=== PATIENT | male | born 1945 | race Caucasian/White ===

== ENCOUNTER 2017-05-16 12:05 | Emergency (ER) | payer MEDICARE, OTHER ==
[~2017-05-16] VITALS: Ht 188 cm; Wt 104.0 kg
[~2017-05-16 12:05] MED LIST: ACET-2119 PO; CARCD120C PO; CHOL2000 PO; CYCL5TAB PO; HYDR12.55 PO; POTA10TA36 PO
[2017-05-16] MEDS ORDERED: ketorolac trometh inj. 60 MG/2 ML VIAL IM ONE (13:30)
[2017-05-16] MEDS ORDERED: orphenadrine citrate 60mg/2ml inj. IM ONE (13:30)
[2017-05-16] MEDS ORDERED: CYCL-1 PO (13:56)
[2017-05-16] MEDS ORDERED: HYDR-569 PO (13:56)
[2017-05-16 14:28] VITALS: BP 154/99
== END 2017-05-16 14:29 | disposition home or self-care (01) ==
LOC: ER 12:05
DX: S16.1XXA Strain of muscle, fascia and tendon at neck level, initial encounter (principal); S39.012A Strain of muscle, fascia and tendon of lower back, initial encounter; M25.511 Pain in right shoulder; G89.29 Other chronic pain; I10 Essential (primary) hypertension; Z88.2 Allergy status to sulfonamides; Z88.1 Allergy status to other antibiotic agents; Z88.0 Allergy status to penicillin; W11.XXXA Fall on and from ladder, initial encounter; Y93.89 Activity, other specified; Y92.89 Other specified places as the place of occurrence of the external cause; Y99.8 Other external cause status
CPT/HCPCS: 70450; 72125; 72131; 73030; 73200; 96372; 99284; J1885; J2360; L0172

== ENCOUNTER 2017-12-10 13:14 | Emergency (ER) | payer MEDICARE, OTHER ==
[~2017-12-10] VITALS: Ht 190.5 cm; Wt 101.4 kg
[~2017-12-10 13:14] MED LIST changes: +CYCL-1 PO; +HYDR-4383 PO
[2017-12-10 13:58] LABS: BASOPHILS % (AUTO) 0.4 % (0-1); EOSINOPHILS # (AUTO) 0.1 X10'3 (0-0.9); EOSINOPHILS % (AUTO) 1.7 % (0-6); HEMATOCRIT 46.7 % (42.0-52.0); HEMOGLOBIN 15.7 g/dl (14.0-17.9); LYMPHOCYTES # (AUTO) 1.6 X10'3 (1.1-4.8); LYMPHOCYTES % (AUTO) 24.8 % (21-51); MEAN CORPUSCULAR HGB CONC 33.5 % (33.0-36.5); MEAN CORPUSCULAR VOLUME 86.4 FL (78-98); MONOCYTES # (AUTO) 0.6 X10'3 (0-0.9); MONOCYTES % (AUTO) 8.6 % (2-12); NEUTROPHILS # (AUTO) 4.2 X10'3 (1.8-7.7); NEUTROPHILS % (AUTO) 64.5 % (42-75); PLATELET COUNT 175 X10'3 (140-440); RED BLOOD COUNT 5.41 X10'6 (4.70-6.10); RED CELL DISTRIBUTION WIDTH 17.3 % (11.5-14.5); WHITE BLOOD COUNT 6.5 X10'3 (4.5-11.0)
[2017-12-10] MEDS ORDERED: ondansetron 4mg rapidly disintigrating tab PO ONE (14:05)
[2017-12-10 14:08] LABS: INR 1.1 INR; PARTIAL THROMBOPLASTIN TIME 26 SECONDS (22-32); PROTHROMBIN TIME 11.4 SECONDS (9.0-12.0)
[2017-12-10 14:11] LABS: ALANINE AMINOTRANSFERASE 58 U/L (12-78); ALBUMIN 3.9 G/DL (3.4-5.0); ALBUMIN/GLOBULIN RATIO 1.1 (1.1-1.5); ALKALINE PHOSPHATASE 102 IU/L (46-116); ANION GAP 13 (8-16); ASPARTATE AMINO TRANSFERASE 44 U/L (10-37); BILIRUBIN,TOTAL 0.9 MG/DL (0.1-1.0); BLOOD UREA NITROGEN 13 MG/DL (7-18); CALCIUM 8.5 MG/DL (8.5-10.1); CHLORIDE 102 MMOL/L (99-107); CREATININE 1.18 MG/DL (0.60-1.10); GLUCOSE 105 MG/DL (70-104); POTASSIUM 3.9 MMOL/L (3.5-5.1); SODIUM 138 MMOL/L (135-145); TOTAL CARBON DIOXIDE 23.3 MMOL/L (24-32); TOTAL PROTEIN 7.6 G/DL (6.4-8.2); eGFR 61 ML/MIN
[2017-12-10 14:31] LABS: CLARITY,URINE CLEAR (Clear); COLOR,URINE YELLOW (Yellow); GLUCOSE, URINE NEGATIVE (Neg); KETONES,URINE NEGATIVE (Neg); LEUKOCYTE ESTERASE ,URINE NEGATIVE (Neg); NITRITES, URINE NEGATIVE (Neg); OCCULT BLOOD,URINE NEGATIVE (Neg); PROTEIN,URINE NEGATIVE (Neg); UROBILINOGEN,URINE 0.2 E.U/dL (0.2-1.0)
[2017-12-10 14:34] LABS: UA COLLECTION TYPE URINAL
[2017-12-10 15:13] VITALS: BP 159/88
== END 2017-12-10 15:16 | disposition home or self-care (01) ==
LOC: ER 13:15
DX: R61 Generalized hyperhidrosis (principal); I10 Essential (primary) hypertension; M19.90 Unspecified osteoarthritis, unspecified site; G89.29 Other chronic pain; Z98.890 Other specified postprocedural states; Z88.0 Allergy status to penicillin; Z88.2 Allergy status to sulfonamides; Z88.1 Allergy status to other antibiotic agents; Z88.5 Allergy status to narcotic agent; Z88.8 Allergy status to other drugs, medicaments and biological substances
CPT/HCPCS: 36415; 71045; 80053; 81003; 83605; 84443; 84484; 85025; 85610; 85730; 93005; 99285

== ENCOUNTER 2020-04-30 23:22 | Emergency (ER) | payer MEDICARE, OTHER ==
[~2020-04-30] VITALS: Ht 188 cm; Wt 95.9 kg
[~2020-04-30 23:22] MED LIST changes: -CARCD120C PO; +CARV6.253 PO; -CHOL2000 PO; +CLON-473 PO; -CYCL-1 PO; -CYCL5TAB PO; -HYDR-4383 PO; -HYDR12.55 PO; +PANT40SU2 PO; -POTA10TA36 PO
[2020-04-30 23:26] VITALS: BP 151/88
[2020-05-01] MEDS ORDERED: ciprofloxacin 250mg tablet PO ONE (00:30)
[2020-05-01 01:01] LABS: CLARITY,URINE CLEAR (Clear); COLOR,URINE YELLOW (Yellow); GLUCOSE, URINE NEGATIVE (Neg); KETONES,URINE NEGATIVE (Neg); LEUKOCYTE ESTERASE ,URINE NEGATIVE (Neg); NITRITES, URINE NEGATIVE (Neg); OCCULT BLOOD,URINE NEGATIVE (Neg); PH,URINE 5.5 (4.8-8.0); PROTEIN,URINE NEGATIVE (Neg); UROBILINOGEN,URINE 0.2 E.U/dL (0.2-1.0)
[2020-05-01] MEDS ORDERED: CIPR-259 PO (01:17)
[2020-05-01 01:26] LABS: UA COLLECTION TYPE CLN CATCH MIDSTREAM
== END 2020-05-01 01:30 | disposition home or self-care (01) ==
LOC: ER 23:23
DX: N39.0 Urinary tract infection, site not specified (principal); I10 Essential (primary) hypertension; M19.90 Unspecified osteoarthritis, unspecified site; G89.29 Other chronic pain; Z87.442 Personal history of urinary calculi; Z98.890 Other specified postprocedural states; Z79.2 Long term (current) use of antibiotics; Z79.899 Other long term (current) drug therapy; Z88.0 Allergy status to penicillin; Z88.1 Allergy status to other antibiotic agents; Z88.2 Allergy status to sulfonamides; Z88.6 Allergy status to analgesic agent; Z88.8 Allergy status to other drugs, medicaments and biological substances
CPT/HCPCS: 81003; 99283

== ENCOUNTER 2020-05-03 21:45 | Emergency (ER) | payer MEDICARE, OTHER ==
[~2020-05-03] VITALS: Ht 188 cm; Wt 93.2 kg
[~2020-05-03 21:45] MED LIST changes: +CIPR-259 PO
[2020-05-03 22:37] VITALS: BP 124/70
[2020-05-03 23:52] LABS: BASOPHILS % (AUTO) 0 % (0-1); EOSINOPHILS # (AUTO) 0.1 X10'3 (0-0.9); EOSINOPHILS % (AUTO) 1.3 % (0-6); HEMATOCRIT 40.8 % (42.0-52.0); HEMOGLOBIN 13.4 g/dl (14.0-17.9); LYMPHOCYTES # (AUTO) 1.4 X10'3 (1.1-4.8); LYMPHOCYTES % (AUTO) 22.4 % (21-51); MEAN CORPUSCULAR HEMOGLOBIN 29.9 PG (27.0-31.0); MEAN CORPUSCULAR HGB CONC 32.8 g/dL (33.0-36.5); MEAN PLATELET VOLUME 7.6 FL (7.4-10.4); MONOCYTES # (AUTO) 0.7 X10'3 (0-0.9); MONOCYTES % (AUTO) 10.7 % (2-12); NEUTROPHILS # (AUTO) 4.1 X10'3 (1.8-7.7); NEUTROPHILS % (AUTO) 65.6 % (42-75); PLATELET COUNT 202 X10'3 (140-440); RED BLOOD COUNT 4.48 X10'6 (4.70-6.10); RED CELL DISTRIBUTION WIDTH 14.2 % (11.5-14.5); WHITE BLOOD COUNT 6.3 X10'3 (4.5-11.0)
[2020-05-04 00:02] LABS: ALANINE AMINOTRANSFERASE 30 U/L (12-78); ALBUMIN 3.4 G/DL (3.4-5.0); ALBUMIN/GLOBULIN RATIO 0.9 (1.1-1.5); ALKALINE PHOSPHATASE 141 IU/L (46-116); ANION GAP 10 (8-16); ASPARTATE AMINO TRANSFERASE 25 U/L (10-37); BILIRUBIN,TOTAL 0.4 MG/DL (0.1-1.0); BLOOD UREA NITROGEN 18 MG/DL (7-18); BUN/CREATININE RATIO 14.9 (5.4-32.0); CHLORIDE 108 MMOL/L (99-107); CREATININE 1.21 MG/DL (0.60-1.10); GLUCOSE 115 MG/DL (70-104); POTASSIUM 3.9 MMOL/L (3.5-5.1); SODIUM 141 MMOL/L (135-145); TOTAL CARBON DIOXIDE 22.7 MMOL/L (24-32); TOTAL PROTEIN 7.3 G/DL (6.4-8.2); eGFR 59 ML/MIN
[2020-05-04 00:25] LABS: CLARITY,URINE CLEAR (Clear); COLOR,URINE YELLOW (Yellow); GLUCOSE, URINE NEGATIVE (Neg); KETONES,URINE NEGATIVE (Neg); LEUKOCYTE ESTERASE ,URINE NEGATIVE (Neg); NITRITES, URINE NEGATIVE (Neg); OCCULT BLOOD,URINE NEGATIVE (Neg); PH,URINE 5.5 (4.8-8.0); PROTEIN,URINE NEGATIVE (Neg); UA COLLECTION TYPE CLN CATCH MIDSTREAM; UROBILINOGEN,URINE 0.2 E.U/dL (0.2-1.0)
[2020-05-04] MEDS ORDERED: tamsulosin 0.4mg capsule PO STA (00:39)
[2020-05-04] MEDS ORDERED: FLO0.4C PO (00:42)
== END 2020-05-04 00:56 | disposition home or self-care (01) ==
LOC: ER 21:46
DX: T83.84XA Pain due to genitourinary prosthetic devices, implants and grafts, initial encounter (principal); R30.0 Dysuria; N40.0 Benign prostatic hyperplasia without lower urinary tract symptoms; I10 Essential (primary) hypertension; M19.90 Unspecified osteoarthritis, unspecified site; G89.29 Other chronic pain; Z87.440 Personal history of urinary (tract) infections; Z87.442 Personal history of urinary calculi; Z90.49 Acquired absence of other specified parts of digestive tract; Z98.890 Other specified postprocedural states; Z88.0 Allergy status to penicillin; Z88.1 Allergy status to other antibiotic agents; Z88.2 Allergy status to sulfonamides; Z88.6 Allergy status to analgesic agent; Z88.8 Allergy status to other drugs, medicaments and biological substances; Z79.2 Long term (current) use of antibiotics; Z79.899 Other long term (current) drug therapy; Y84.6 Urinary catheterization as the cause of abnormal reaction of the patient, or of later complication, without mention of misadventure at the time of the procedure; Y92.89 Other specified places as the place of occurrence of the external cause
CPT/HCPCS: 36415; 80053; 81003; 85025; 99284

== ENCOUNTER 2021-04-03 09:37 | Emergency (ER) | payer MEDICARE, OTHER ==
[~2021-04-03] VITALS: Ht 190.5 cm; Wt 99.0 kg
[2021-04-03 11:53] LABS: BASOPHILS % (AUTO) 0.4 % (0-1); EOSINOPHILS # (AUTO) 0.1 X10'3 (0-0.9); EOSINOPHILS % (AUTO) 1.4 % (0-6); HEMATOCRIT 46.3 % (42.0-52.0); HEMOGLOBIN 15.4 g/dl (14.0-17.9); LYMPHOCYTES # (AUTO) 1.1 X10'3 (1.1-4.8); LYMPHOCYTES % (AUTO) 19.8 % (21-51); MEAN CORPUSCULAR HEMOGLOBIN 30.5 PG (27.0-31.0); MEAN CORPUSCULAR HGB CONC 33.3 g/dL (33.0-36.5); MEAN CORPUSCULAR VOLUME 91.8 FL (78-98); MONOCYTES # (AUTO) 0.5 X10'3 (0-0.9); MONOCYTES % (AUTO) 8.1 % (2-12); NEUTROPHILS % (AUTO) 70.3 % (42-75); PLATELET COUNT 161 X10'3 (140-440); RED BLOOD COUNT 5.04 X10'6 (4.70-6.10); RED CELL DISTRIBUTION WIDTH 14.1 % (11.5-14.5); WHITE BLOOD COUNT 5.7 X10'3 (4.5-11.0)
[2021-04-03 12:07] LABS: ALANINE AMINOTRANSFERASE 47 U/L (12-78); ALBUMIN 3.8 G/DL (3.4-5.0); ALBUMIN/GLOBULIN RATIO 1.2 (1.1-1.5); ALKALINE PHOSPHATASE 91 IU/L (46-116); ANION GAP 14 (8-16); ASPARTATE AMINO TRANSFERASE 40 U/L (10-37); BILIRUBIN,TOTAL 0.9 MG/DL (0.1-1.0); BLOOD UREA NITROGEN 18 MG/DL (7-18); CHLORIDE 108 MMOL/L (99-107); CREATININE 1.29 MG/DL (0.60-1.10); GLUCOSE 121 MG/DL (70-104); POTASSIUM 4.3 MMOL/L (3.5-5.1); SODIUM 143 MMOL/L (135-145); TOTAL CARBON DIOXIDE 20.6 MMOL/L (24-32); TOTAL PROTEIN 6.9 G/DL (6.4-8.2); eGFR 54 ML/MIN
[2021-04-03] MEDS ORDERED: iohexol 300mg/ml 100ml inj. ONE (12:42)
[2021-04-03] MEDS ORDERED: METR-159 PO (13:46)
[2021-04-03] MEDS ORDERED: CIPR-429 PO (13:46)
[2021-04-03 14:24] VITALS: BP 149/87
== END 2021-04-03 14:26 | disposition home or self-care (01) ==
LOC: ER 09:38
DX: K91.850 Pouchitis (principal); R10.31 Right lower quadrant pain; R19.7 Diarrhea, unspecified; I10 Essential (primary) hypertension; M19.90 Unspecified osteoarthritis, unspecified site; G89.29 Other chronic pain; Z87.442 Personal history of urinary calculi; Z98.890 Other specified postprocedural states; Z88.0 Allergy status to penicillin; Z88.2 Allergy status to sulfonamides; Z88.1 Allergy status to other antibiotic agents; Z88.8 Allergy status to other drugs, medicaments and biological substances; Z88.5 Allergy status to narcotic agent; Z79.2 Long term (current) use of antibiotics; Z79.899 Other long term (current) drug therapy
CPT/HCPCS: 36415; 74177; 80053; 84145; 85025; 99285; Q9967

== ENCOUNTER 2021-04-30 12:41 | Inpatient (IN) | payer MEDICARE, OTHER ==
[~2021-04-30] VITALS: Ht 188 cm; Wt 94.5 kg
[~2021-04-30 12:41] MED LIST changes: +CIPR-429 PO
[2021-04-30 13:24] LABS: BASOPHILS % (AUTO) 0.6 % (0-1); EOSINOPHILS # (AUTO) 0.1 X10'3 (0-0.9); EOSINOPHILS % (AUTO) 1.7 % (0-6); HEMATOCRIT 46.4 % (42.0-52.0); HEMOGLOBIN 15.4 g/dl (14.0-17.9); LYMPHOCYTES # (AUTO) 1.3 X10'3 (1.1-4.8); LYMPHOCYTES % (AUTO) 24.6 % (21-51); MEAN CORPUSCULAR HEMOGLOBIN 30.2 PG (27.0-31.0); MEAN CORPUSCULAR HGB CONC 33.2 g/dL (33.0-36.5); MEAN PLATELET VOLUME 8.3 FL (7.4-10.4); MONOCYTES # (AUTO) 0.4 X10'3 (0-0.9); MONOCYTES % (AUTO) 7.8 % (2-12); NEUTROPHILS # (AUTO) 3.5 X10'3 (1.8-7.7); NEUTROPHILS % (AUTO) 65.3 % (42-75); PLATELET COUNT 148 X10'3 (140-440); RED CELL DISTRIBUTION WIDTH 14.2 % (11.5-14.5); WHITE BLOOD COUNT 5.3 X10'3 (4.5-11.0)
[2021-04-30 13:50] LABS: ALANINE AMINOTRANSFERASE 38 U/L (12-78); ALBUMIN 3.8 G/DL (3.4-5.0); ALBUMIN/GLOBULIN RATIO 1.1 (1.1-1.5); ALKALINE PHOSPHATASE 91 IU/L (46-116); ANION GAP 10 (8-16); ASPARTATE AMINO TRANSFERASE 27 U/L (10-37); BILIRUBIN,TOTAL 0.7 MG/DL (0.1-1.0); BLOOD UREA NITROGEN 16 MG/DL (7-18); BUN/CREATININE RATIO 14.4 (5.4-32.0); CALCIUM 9.1 MG/DL (8.5-10.1); CHLORIDE 105 MMOL/L (99-107); CREATININE 1.11 MG/DL (0.60-1.10); GLUCOSE 115 MG/DL (70-104); POTASSIUM 4.1 MMOL/L (3.5-5.1); SODIUM 140 MMOL/L (135-145); TOTAL CARBON DIOXIDE 24.6 MMOL/L (24-32); TOTAL PROTEIN 7.3 G/DL (6.4-8.2); eGFR 65 ML/MIN
[2021-04-30] MEDS ORDERED: aspirin 81mg tab.chew PO ONE (14:10)
[2021-04-30] MEDS: nitroGLYCERIN 0.4mg SUBLingual tab SL PRN ×3 (14:31→17:25)
--- NOTE | 2021-04-30 14:31 | NUR ---
ntg 0.4 1 tab given for cp 05/24
[2021-04-30] MEDS ORDERED: mag hydrox/Alum hydrox/simeth 30ml oral suspension PO ONE (14:40)
[2021-04-30] MEDS ORDERED: sucralfate 1 gm tablet PO ONE (14:40)
[2021-04-30] MEDS ORDERED: LIDOcaine Viscous 15ml cup MM ONE (14:40)
--- NOTE | 2021-04-30 14:51 | NUR ---
pt denies cp at this time 0-10 on painscale
[2021-04-30] MEDS ORDERED: PANT-47 PO (15:53)
[2021-04-30] MEDS ORDERED: ASCO100T12 PO (15:53)
[2021-04-30] MEDS ORDERED: MECO10005 (15:53)
[2021-04-30] MEDS ORDERED: PSYL575P22 PO (15:53)
[2021-04-30] MEDS ORDERED: GABA-530 PO (15:53)
[2021-04-30] MEDS ORDERED: CHOL50002 PO (15:53)
[2021-04-30] MEDS ORDERED: VALS40TA2 PO (15:53)
--- NOTE | 2021-04-30 17:14 | NUR ---
ntg sl 0.4mg not effective. second ntg given at 1725
--- NOTE | 2021-04-30 17:29 | NUR ---
dr. hawk at bedside
[2021-04-30] MEDS ORDERED: nitroGLYCERIN-Tridil 50MG/D5W 250 ML IV PRN (17:45)
[2021-04-30] MEDS ORDERED: nitroGLYCERIN 0.4mg SUBLingual tab SL PRN (17:50)
[2021-04-30] MEDS ORDERED: mag hydrox/Alum hydrox/simeth 30ml oral suspension PO PRN ×2 (17:50→18:40)
[2021-04-30] MEDS ORDERED: HYDROmorphone inj. 0.5 MG/0.5 ML DISP.SYRIN IV PRN (17:50)
[2021-04-30] MEDS ORDERED: bisacodyl 10mg suppository rectal RC PRN (17:50)
[2021-04-30] MEDS ORDERED: ondansetron/PF 4mg/2ml inj IV PRN (17:50)
[2021-04-30] MEDS ORDERED: ondansetron 4mg rapidly disintigrating tab PO PRN (17:50)
[2021-04-30] MEDS ORDERED: magnesium hydroxide 30ml (MOM) UD suspension PO PRN (17:50)
[2021-04-30] MEDS ORDERED: potassium CL 10mEq/100ml bag 100 ML IV PRN (17:50)
[2021-04-30] MEDS ORDERED: magnesium 4gm in 100ml NS 100 ML IV PRN (17:50)
[2021-04-30] MEDS ORDERED: potassium Cl 20 mEq SR tablet PO PRN ×2 (17:50)
[2021-04-30] MEDS ORDERED: HYDROcodone/acetaminophen 5mg/325mg tablet PO PRN (17:50)
[2021-04-30] MEDS ORDERED: PERFLUTREN PROTEIN-A MICROSPHR (Optison) 0.22 MG/ML 3ML VIAL IV ONE (17:50)
[2021-04-30] MEDS ORDERED: metoclopramide 5 mg/ml inj IV PRN (17:50)
[2021-04-30] MEDS ORDERED: HYDROcodone/acetaminophen 10/325mg tab PO PRN (17:50)
[2021-04-30] MEDS ORDERED: nitroGLYCERIN-Tridil 50MG/D5W 250 ML IV SCH (17:50)
[2021-04-30] MEDS ORDERED: acetaminophen 325mg tablet PO PRN ×2 (17:50)
[2021-04-30] MEDS ORDERED: magnesium 2GM in 50ml NS 50 ML IV PRN (17:50)
[2021-04-30] MEDS ORDERED: magnesium Cl slow-release 64mg tablet PO PRN (17:50)
[2021-04-30 18:19] LABS: MAGNESIUM 2.2 MG/DL (1.5-2.4); POTASSIUM 3.8 MMOL/L (3.5-5.1)
[2021-04-30] MEDS: pantoprazole 40mg Tablet.DR PO SCH (18:40)
[2021-04-30] MEDS: normal saline 1000ml 1,000 ML IV SCH (18:41)
[2021-04-30 19:04] LABS: APTT 27 SECONDS (22-32)
[2021-04-30] MEDS: K and/or MAG REPLACEMENT MC SCH (20:00)
[2021-04-30] MEDS: metoprolol tartrate 12.5mg (1/2 tablet) PO SCH (20:00)
[2021-04-30] MEDS: docusate sod 100mg capsule PO SCH (20:00)
[2021-04-30] MEDS ORDERED: temazepam 15mg capsule PO PRN (21:00)
[2021-05-01] VITALS (7 sets, daily range): BP systolic 119–160; BP diastolic 66–109
--- NOTE | 2021-05-01 00:45 | NUR ---
Patient admitted to room 3015A. Alert and oriented X4. Able to ambulate independently. Nitro drip running @ 1.5mg a hour, no current complaints of chest pain. Tele monitor on vitals stable. Oriented to room and call mueller system. Discussed plan of care. Aware of NPO status for now. Will continue to monitor.
[2021-05-01] MEDS: heparin, porcine 5000 units/ml vial SQ SCH ×3 (00:59→16:13)
[2021-05-01] MEDS: normal saline 1000ml 1,000 ML IV SCH ×2 (04:14→13:50)
[2021-05-01 07:27] LABS: BASOPHILS % (AUTO) 0.6 % (0-1); EOSINOPHILS # (AUTO) 0.1 X10'3 (0-0.9); EOSINOPHILS % (AUTO) 1.7 % (0-6); HEMATOCRIT 43.1 % (42.0-52.0); HEMOGLOBIN 14.4 g/dl (14.0-17.9); LYMPHOCYTES # (AUTO) 1.4 X10'3 (1.1-4.8); LYMPHOCYTES % (AUTO) 29.4 % (21-51); MEAN CORPUSCULAR HEMOGLOBIN 30.6 PG (27.0-31.0); MEAN CORPUSCULAR HGB CONC 33.5 g/dL (33.0-36.5); MEAN CORPUSCULAR VOLUME 91.4 FL (78-98); MEAN PLATELET VOLUME 8.3 FL (7.4-10.4); MONOCYTES # (AUTO) 0.4 X10'3 (0-0.9); NEUTROPHILS # (AUTO) 2.8 X10'3 (1.8-7.7); NEUTROPHILS % (AUTO) 59.3 % (42-75); PLATELET COUNT 122 X10'3 (140-440); RED BLOOD COUNT 4.71 X10'6 (4.70-6.10); RED CELL DISTRIBUTION WIDTH 13.8 % (11.5-14.5); WHITE BLOOD COUNT 4.7 X10'3 (4.5-11.0)
[2021-05-01 07:38] LABS: ALANINE AMINOTRANSFERASE 34 U/L (12-78); ALBUMIN 3.2 G/DL (3.4-5.0); ALKALINE PHOSPHATASE 76 IU/L (46-116); ANION GAP 12 (8-16); ASPARTATE AMINO TRANSFERASE 24 U/L (10-37); BLOOD UREA NITROGEN 13 MG/DL (7-18); BUN/CREATININE RATIO 12.1 (5.4-32.0); CALCIUM 8.5 MG/DL (8.5-10.1); CHLORIDE 108 MMOL/L (99-107); CHOL/HDL RATIO 3.2 (0.00-4.99); CHOLESTEROL 144 MG/DL (0-200); CREATININE 1.07 MG/DL (0.60-1.10); GLUCOSE 94 MG/DL (70-104); HDL CHOLESTEROL 45 MG/DL (35-60); LDL CHOLESTEROL 82 MG/DL (50-100); POTASSIUM 4.1 MMOL/L (3.5-5.1); SODIUM 143 MMOL/L (135-145); TOTAL CARBON DIOXIDE 23.5 MMOL/L (24-32); TOTAL PROTEIN 6.4 G/DL (6.4-8.2); TRIGLYCERIDES 124 MG/DL (20-135); eGFR 67 ML/MIN
[2021-05-01] MEDS ORDERED: aspirin 81mg, enteric-coated 1 TAB TABLET.DR PO SCH (08:00)
[2021-05-01] MEDS: pantoprazole 40mg Tablet.DR PO SCH (08:42)
[2021-05-01] MEDS: metoprolol tartrate 12.5mg (1/2 tablet) PO SCH (08:44)
[2021-05-01] MEDS: gabapentin 100mg capsule PO SCH ×3 (08:45→16:13)
[2021-05-01] MEDS: HYDROmorphone/PF 0.2 MG/ML SYRINGE IV PRN ×2 (08:45→12:40)
[2021-05-01] MEDS: K and/or MAG REPLACEMENT MC SCH (08:45)
[2021-05-01] MEDS: docusate sod 100mg capsule PO SCH (08:45)
[2021-05-01] MEDS ORDERED: verapamil 2.5 mg/ml inj IV ONE (14:12)
[2021-05-01] MEDS ORDERED: nitroGLYCERIN-Tridil 50MG/D5W 250 ML IV ONE (14:12)
[2021-05-01] MEDS ORDERED: iohexol 350 MG/ML 50ML vial IV ONE (14:13)
[2021-05-01] MEDS ORDERED: LIDOcaine 1% (10mg/ml)w/preservative inj. 20ml MDV ONE (14:13)
[2021-05-01] MEDS ORDERED: fentaNYL/PF 50MCG/1 ML 2ML syringe ONE ×2 (14:13→14:16)
[2021-05-01] MEDS ORDERED: iohexol 350MG/ML 100ml bottle IV ONE (14:13)
[2021-05-01] MEDS ORDERED: heparin 1,000unit/ml 10ml vial 10 ML ONE (14:13)
[2021-05-01] MEDS ORDERED: LORazepam 2 mg/ml vial ONE (15:00)
[2021-05-01] MEDS ORDERED: normal saline 1000ml 1,000 ML IV SCH (16:50)
[2021-05-01] MEDS ORDERED: diltiazem CD 120mg capsule (once-daily) PO SCH (16:51)
[2021-05-01] MEDS ORDERED: pantoprazole 40mg Tablet.DR PO SCH (18:00)
== END 2021-05-01 21:10 | disposition home or self-care (01) | DRG 392 ==
LOC: ER 12:41 → ED HOLD 17:56 → PCU 3S 05-01 00:46
PROVIDERS: ADMIT Family Medicine; ATTEND Family Medicine
PROC: 4A023N7 Measurement of Cardiac Sampling and Pressure, Left Heart, Percutaneous Approach (ICD-10-PCS; principal; 2021-05-01)
PROC: B2111ZZ Fluoroscopy of Multiple Coronary Arteries using Low Osmolar Contrast (ICD-10-PCS; 2021-05-01)
PROC: B2151ZZ Fluoroscopy of Left Heart using Low Osmolar Contrast (ICD-10-PCS; 2021-05-01)
DX: K22.4 Dyskinesia of esophagus (principal); I20.0 Unstable angina; I38 Endocarditis, valve unspecified; E78.5 Hyperlipidemia, unspecified; I10 Essential (primary) hypertension; G89.29 Other chronic pain; K21.9 Gastro-esophageal reflux disease without esophagitis; M10.9 Gout, unspecified; M19.90 Unspecified osteoarthritis, unspecified site; M54.9 Dorsalgia, unspecified; N40.0 Benign prostatic hyperplasia without lower urinary tract symptoms; Z82.49 Family history of ischemic heart disease and other diseases of the circulatory system; Z87.11 Personal history of peptic ulcer disease; Z87.442 Personal history of urinary calculi; Z90.49 Acquired absence of other specified parts of digestive tract; Z88.0 Allergy status to penicillin; Z88.2 Allergy status to sulfonamides; Z88.5 Allergy status to narcotic agent; Z79.899 Other long term (current) drug therapy
CPT/HCPCS: 36415; 71045; 74176; 80053; 80061; 83735; 83880; 84132; 84484; 85025; 85610; 85730; 87081; 93005; 93306; 93458; 99152; 99153; 99285; A4620; A5120; A6258; C1769; C1894; G0378; J1170; J1644; J2060; J2405; J3010; J3490; J7030; Q9967

== ENCOUNTER 2021-08-03 07:14 | Emergency (ER) | payer MEDICARE, OTHER ==
[~2021-08-03] VITALS: Ht 188 cm; Wt 96.4 kg
[~2021-08-03 07:14] MED LIST changes: -ACET-2119 PO; +ASCO100T12 PO; -CARV6.253 PO; +CHOL50002 PO; -CIPR-259 PO; -CIPR-429 PO; -CLON-473 PO; +GABA-530 PO; +MECO10005; +PANT-47 PO; -PANT40SU2 PO; +PSYL575P22 PO; +VALS40TA2 PO
[2021-08-03 07:18] VITALS: BP 135/84
[2021-08-03] MEDS ORDERED: ondansetron/PF 4mg/2ml inj IV ONE (10:50)
[2021-08-03] MEDS ORDERED: normal saline 1000ML IV soln IVB ONE (10:50)
[2021-08-03 11:02] LABS: BASOPHILS % (AUTO) 0.2 % (0-1); EOSINOPHILS # (AUTO) 0.1 X10'3 (0-0.9); EOSINOPHILS % (AUTO) 1.1 % (0-6); HEMATOCRIT 45.8 % (42.0-52.0); HEMOGLOBIN 15.7 g/dl (14.0-17.9); LYMPHOCYTES # (AUTO) 0.8 X10'3 (1.1-4.8); LYMPHOCYTES % (AUTO) 14.3 % (21-51); MEAN CORPUSCULAR HEMOGLOBIN 31.5 PG (27.0-31.0); MEAN CORPUSCULAR HGB CONC 34.3 g/dL (33.0-36.5); MEAN PLATELET VOLUME 7.4 FL (7.4-10.4); MONOCYTES # (AUTO) 0.4 X10'3 (0-0.9); MONOCYTES % (AUTO) 7.8 % (2-12); NEUTROPHILS # (AUTO) 4.2 X10'3 (1.8-7.7); NEUTROPHILS % (AUTO) 76.6 % (42-75); PLATELET COUNT 137 X10'3 (140-440); RED BLOOD COUNT 4.98 X10'6 (4.70-6.10); RED CELL DISTRIBUTION WIDTH 14.7 % (11.5-14.5); WHITE BLOOD COUNT 5.5 X10'3 (4.5-11.0)
[2021-08-03 11:17] LABS: ALANINE AMINOTRANSFERASE 47 U/L (12-78); ALBUMIN 3.8 G/DL (3.4-5.0); ALBUMIN/GLOBULIN RATIO 1.2 (1.1-1.5); ALKALINE PHOSPHATASE 74 IU/L (46-116); ANION GAP 7 (8-16); ASPARTATE AMINO TRANSFERASE 31 U/L (10-37); BLOOD UREA NITROGEN 18 MG/DL (7-18); BUN/CREATININE RATIO 15.9 (5.4-32.0); CALCIUM 9.2 MG/DL (8.5-10.1); CHLORIDE 107 MMOL/L (99-107); CREATININE 1.13 MG/DL (0.60-1.10); GLUCOSE 100 MG/DL (70-104); LIPASE 108 U/L (73-393); POTASSIUM 4.4 MMOL/L (3.5-5.1); SODIUM 141 MMOL/L (135-145); TOTAL CARBON DIOXIDE 27.1 MMOL/L (24-32); TOTAL PROTEIN 7.1 G/DL (6.4-8.2); eGFR 63 ML/MIN
[2021-08-03 13:07] LABS: CLARITY,URINE CLEAR (Clear); COLOR,URINE YELLOW (Yellow); GLUCOSE, URINE NEGATIVE (Neg); KETONES,URINE NEGATIVE (Neg); LEUKOCYTE ESTERASE ,URINE NEGATIVE (Neg); NITRITES, URINE NEGATIVE (Neg); OCCULT BLOOD,URINE NEGATIVE (Neg); PH,URINE 5.5 (4.8-8.0); PROTEIN,URINE NEGATIVE (Neg); UROBILINOGEN,URINE 0.2 E.U/dL (0.2-1.0)
[2021-08-03 13:29] LABS: UA COLLECTION TYPE VOIDED
[2021-08-03] MEDS ORDERED: METR-159 PO (13:35)
[2021-08-03] MEDS ORDERED: CIPR-202 PO (13:35)
== END 2021-08-03 13:48 | disposition home or self-care (01) ==
LOC: ER 07:15
DX: R19.7 Diarrhea, unspecified (principal); R10.10 Upper abdominal pain, unspecified; R11.2 Nausea with vomiting, unspecified; R10.13 Epigastric pain; I10 Essential (primary) hypertension; M19.90 Unspecified osteoarthritis, unspecified site; G89.29 Other chronic pain; Z87.442 Personal history of urinary calculi; Z90.49 Acquired absence of other specified parts of digestive tract; Z87.19 Personal history of other diseases of the digestive system; Z88.0 Allergy status to penicillin; Z88.2 Allergy status to sulfonamides; Z88.1 Allergy status to other antibiotic agents; Z88.5 Allergy status to narcotic agent; Z88.8 Allergy status to other drugs, medicaments and biological substances; Z79.2 Long term (current) use of antibiotics; Z79.899 Other long term (current) drug therapy
CPT/HCPCS: 36415; 74176; 80053; 81003; 83690; 85025; 96361; 96374; 99284; J2405; J7030

== ENCOUNTER 2022-05-04 14:40 | Outpatient (CLI) | payer MEDICARE, OTHER | END 2022-05-04 23:59 | disposition home or self-care (01) | LOC: CARD DIAG 14:40 | PROVIDERS: ATTEND Internal Medicine Cardiovascular Disease | DX: I08.0 Rheumatic disorders of both mitral and aortic valves (principal) | CPT/HCPCS: 93306 ==

== ENCOUNTER 2022-12-27 08:25 | Outpatient (CLI) | payer MEDICARE, OTHER ==
[2022-12-27] MEDS ORDERED: iohexol 300mg/ml 100ml inj. ONE (08:43)
== END 2022-12-27 23:59 | disposition home or self-care (01) ==
LOC: RAD 08:25
PROVIDERS: ATTEND Family Medicine
DX: N28.1 Cyst of kidney, acquired (principal); N28.89 Other specified disorders of kidney and ureter; Z90.49 Acquired absence of other specified parts of digestive tract
CPT/HCPCS: 74177; J3490; Q9967

== ENCOUNTER 2023-05-18 12:27 | Emergency (ER) | payer MEDICARE, OTHER ==
[~2023-05-18] VITALS: Ht 188 cm; Wt 90.9 kg
[2023-05-18 12:39] LABS: BASOPHILS % (AUTO) 0.3 % (0-1); EOSINOPHILS # (AUTO) 0.1 X10'3 (0-0.9); EOSINOPHILS % (AUTO) 0.9 % (0-6); HEMATOCRIT 46.5 % (42.0-52.0); HEMOGLOBIN 15.7 g/dl (14.0-17.9); LYMPHOCYTES % (AUTO) 15.2 % (21-51); MEAN CORPUSCULAR HEMOGLOBIN 32.4 PG (27.0-31.0); MEAN CORPUSCULAR HGB CONC 33.9 g/dL (33.0-36.5); MEAN CORPUSCULAR VOLUME 95.6 FL (78-98); MEAN PLATELET VOLUME 7.9 FL (7.4-10.4); MONOCYTES # (AUTO) 0.5 X10'3 (0-0.9); MONOCYTES % (AUTO) 7.3 % (2-12); NEUTROPHILS # (AUTO) 4.9 X10'3 (1.8-7.7); NEUTROPHILS % (AUTO) 76.3 % (42-75); PLATELET COUNT 168 X10'3 (140-440); RED BLOOD COUNT 4.86 X10'6 (4.70-6.10); RED CELL DISTRIBUTION WIDTH 13.9 % (11.5-14.5); WHITE BLOOD COUNT 6.4 X10'3 (4.5-11.0)
[2023-05-18 13:08] LABS: ALANINE AMINOTRANSFERASE 35 U/L (12-78); ALBUMIN 3.6 G/DL (3.4-5.0); ALBUMIN/GLOBULIN RATIO 0.9 (1.1-1.5); ALKALINE PHOSPHATASE 94 IU/L (46-116); ANION GAP 12 (8-16); ASPARTATE AMINO TRANSFERASE 31 U/L (10-37); BILIRUBIN,TOTAL 0.8 MG/DL (0.1-1.0); BLOOD UREA NITROGEN 18 MG/DL (7-18); BUN/CREATININE RATIO 12.6 (10.0-20.0); CHLORIDE 105 MMOL/L (99-107); CREATININE 1.43 MG/DL (0.60-1.10); GLUCOSE 117 MG/DL (70-104); POTASSIUM 4.1 MMOL/L (3.5-5.1); SODIUM 138 MMOL/L (135-145); TOTAL CARBON DIOXIDE 21.1 MMOL/L (24-32); TOTAL PROTEIN 7.5 G/DL (6.4-8.2); eCRCL 50 ML/MIN; eGFR 48 ML/MIN
[2023-05-18 16:58] VITALS: TEMP 97.7
[2023-05-18] MEDS ORDERED: ketorolac trometh. 30mg/ml inj. IM ONE (17:10)
[2023-05-18] MEDS: ketorolac tromethamine 15mg/ml inj. IM ONE (17:30)
[2023-05-18] MEDS: orphenadrine citrate 60mg/2ml inj. IM ONE (17:31)
[2023-05-18] MEDS: fentaNYL/PF 50MCG/1 ML 2ML syringe IM ONE (17:31)
[2023-05-18] MEDS ORDERED: DIAZ5TAB PO (17:35)
[2023-05-18] MEDS ORDERED: TRAM50TA2 PO (17:35)
[2023-05-18 18:20] VITALS: BP 154/74; PULSE 64; RESP 16; O2SAT 98
== END 2023-05-18 18:21 | disposition home or self-care (01) ==
LOC: ER 12:27
DX: M54.50 Low back pain, unspecified (principal); Z88.1 Allergy status to other antibiotic agents; Z88.0 Allergy status to penicillin; Z88.2 Allergy status to sulfonamides; Z88.8 Allergy status to other drugs, medicaments and biological substances; I10 Essential (primary) hypertension; M19.90 Unspecified osteoarthritis, unspecified site
CPT/HCPCS: 36415; 71045; 80053; 84484; 85025; 93005; 96372; 99285; J1885; J2360; J3010

== ENCOUNTER 2023-09-03 05:55 | Observation (INO) | payer MEDICARE, OTHER ==
[~2023-09-03] VITALS: Ht 188 cm; Wt 72.0 kg
[~2023-09-03 05:55] MED LIST changes: +DIAZ5TAB PO
[2023-09-03] MEDS: aspirin 81mg tab.chew PO ONE (06:47)
[2023-09-03 06:53] LABS: ALANINE AMINOTRANSFERASE 50 U/L (12-78); ALBUMIN 3.8 G/DL (3.4-5.0); ALKALINE PHOSPHATASE 81 IU/L (46-116); ANION GAP 10 (8-16); BILIRUBIN,TOTAL 1.2 MG/DL (0.1-1.0); BLOOD UREA NITROGEN 13 MG/DL (7-18); BUN/CREATININE RATIO 12.7 (10.0-20.0); CALCIUM 8.9 MG/DL (8.5-10.1); CHLORIDE 106 MMOL/L (99-107); CREATININE 1.02 MG/DL (0.60-1.10); GLUCOSE 110 MG/DL (70-104); PRO BRAIN NATRIURETIC PEPTIDE 195 PG/ML (0-450); SODIUM 139 MMOL/L (135-145); TOTAL CARBON DIOXIDE 23.1 MMOL/L (24-32); TOTAL PROTEIN 7.5 G/DL (6.4-8.2); eCRCL 62 ML/MIN; eGFR 71 ML/MIN
[2023-09-03 06:55] LABS: ASPARTATE AMINO TRANSFERASE 44 U/L (10-37); POTASSIUM 4.3 MMOL/L (3.5-5.1)
[2023-09-03 06:57] LABS: BASOPHILS % (AUTO) 0.4 % (0-1); HEMATOCRIT 46.8 % (42.0-52.0); HEMOGLOBIN 15.8 g/dl (14.0-17.9); LYMPHOCYTES # (AUTO) 0.8 X10'3 (1.1-4.8); LYMPHOCYTES % (AUTO) 16.3 % (21-51); MEAN CORPUSCULAR HEMOGLOBIN 32.3 PG (27.0-31.0); MEAN CORPUSCULAR HGB CONC 33.8 g/dL (33.0-36.5); MEAN CORPUSCULAR VOLUME 95.5 FL (78-98); MEAN PLATELET VOLUME 7.7 FL (7.4-10.4); MONOCYTES # (AUTO) 0.4 X10'3 (0-0.9); NEUTROPHILS # (AUTO) 3.9 X10'3 (1.8-7.7); NEUTROPHILS % (AUTO) 75.3 % (42-75); PLATELET COUNT 148 X10'3 (140-440); RED CELL DISTRIBUTION WIDTH 14.3 % (11.5-14.5); WHITE BLOOD COUNT 5.1 X10'3 (4.5-11.0)
[2023-09-03] MEDS ORDERED: iohexol 300mg/ml 100ml inj. ONE (10:08)
[2023-09-03] MEDS: ondansetron/PF 4mg/2ml inj IV ONE (10:08)
[2023-09-03 10:45] LABS: BILIRUBIN,URINE NEGATIVE (Neg); CLARITY,URINE CLEAR (Clear); COLOR,URINE YELLOW (Yellow); GLUCOSE, URINE NEGATIVE (Neg); KETONES,URINE NEGATIVE (Neg); LEUKOCYTE ESTERASE ,URINE NEGATIVE (Neg); NITRITES, URINE NEGATIVE (Neg); OCCULT BLOOD,URINE NEGATIVE (Neg); PROTEIN,URINE NEGATIVE (Neg); UROBILINOGEN,URINE 0.2 E.U/dL (0.2-1.0)
[2023-09-03 10:48] LABS: UA COLLECTION TYPE CLN CATCH MIDSTREAM
[2023-09-03] MEDS ORDERED: potassium Cl 40MEQ/1/2NS 520ml 520 ML IV PRN (12:25)
[2023-09-03] MEDS ORDERED: ondansetron/PF 4mg/2ml inj IV PRN (12:25)
[2023-09-03] MEDS ORDERED: HYDROcodone/acetaminophen 10/325mg tab PO PRN (12:25)
[2023-09-03] MEDS ORDERED: magnesium Cl slow-release 64mg tablet PO PRN (12:25)
[2023-09-03] MEDS ORDERED: morphine 2 MG/ML inj. syringe IV PRN ×2 (12:25)
[2023-09-03] MEDS ORDERED: magnesium sulf-water 4G/100mL 100 ML IV PRN (12:25)
[2023-09-03] MEDS ORDERED: magnesium sulf-water 2g/50mL 50 ML IV PRN (12:25)
[2023-09-03] MEDS ORDERED: acetaminophen 325mg tablet PO PRN ×2 (12:25)
[2023-09-03] MEDS ORDERED: potassium Cl 20 mEq SR tablet PO PRN ×2 (12:25)
[2023-09-03] MEDS: normal saline 1000ml 1,000 ML IV SCH (13:24)
[2023-09-03] MEDS: pantoprazole 40mg Tablet.DR PO SCH (13:24)
[2023-09-03 14:27] VITALS: BP 142/79; PULSE 77; RESP 16; TEMP 97.5; O2SAT 98
[2023-09-03] MEDS ORDERED: ASPI-920 PO (15:08)
[2023-09-03 18:00] VITALS: BP 135/75; PULSE 64; RESP 12; TEMP 98.1; O2SAT 96
[2023-09-03 20:00] VITALS: BP_SYST 127; BP_SYST 129; BP_SYST 146; BP_DIAS 76; BP_DIAS 78; BP_DIAS 83; PULSE 61; PULSE 64; PULSE 68; RESP 12; O2SAT 96
[2023-09-03] MEDS: heparin, porcine 5000 units/ml vial SQ SCH (20:14)
[2023-09-03] MEDS: HYDROcodone/acetaminophen 5mg/325mg tablet PO PRN (21:16)
[2023-09-03 22:00] VITALS: BP 146/75; PULSE 61; RESP 15; TEMP 98.1; O2SAT 97
[2023-09-03] MEDS: Melatonin 3mg tablet PO ONE (23:52)
[2023-09-04 02:00] VITALS: BP 138/68; PULSE 57; RESP 16; TEMP 97.7; O2SAT 100
[2023-09-04 06:00] VITALS: BP 128/78; PULSE 62; RESP 17; TEMP 97; O2SAT 96
[2023-09-04 06:04] LABS: BASOPHILS % (AUTO) 0.5 % (0-1); EOSINOPHILS # (AUTO) 0.1 X10'3 (0-0.9); EOSINOPHILS % (AUTO) 1.3 % (0-6); HEMATOCRIT 43.9 % (42.0-52.0); HEMOGLOBIN 14.6 g/dl (14.0-17.9); LYMPHOCYTES # (AUTO) 1.3 X10'3 (1.1-4.8); MEAN CORPUSCULAR HGB CONC 33.3 g/dL (33.0-36.5); MEAN CORPUSCULAR VOLUME 96.2 FL (78-98); MONOCYTES # (AUTO) 0.4 X10'3 (0-0.9); MONOCYTES % (AUTO) 7.6 % (2-12); NEUTROPHILS # (AUTO) 3.1 X10'3 (1.8-7.7); NEUTROPHILS % (AUTO) 64.6 % (42-75); PLATELET COUNT 121 X10'3 (140-440); RED BLOOD COUNT 4.56 X10'6 (4.70-6.10); RED CELL DISTRIBUTION WIDTH 14.2 % (11.5-14.5); WHITE BLOOD COUNT 4.8 X10'3 (4.5-11.0)
[2023-09-04 06:08] LABS: ALANINE AMINOTRANSFERASE 35 U/L (12-78); ALBUMIN/GLOBULIN RATIO 0.9 (1.1-1.5); ALKALINE PHOSPHATASE 64 IU/L (46-116); ANION GAP 10 (8-16); ASPARTATE AMINO TRANSFERASE 24 U/L (10-37); BILIRUBIN,TOTAL 1.2 MG/DL (0.1-1.0); BLOOD UREA NITROGEN 12 MG/DL (7-18); CALCIUM 8.6 MG/DL (8.5-10.1); CHLORIDE 106 MMOL/L (99-107); CREATININE 1.09 MG/DL (0.60-1.10); GLUCOSE 89 MG/DL (70-104); POTASSIUM 3.9 MMOL/L (3.5-5.1); SODIUM 140 MMOL/L (135-145); TOTAL CARBON DIOXIDE 24.2 MMOL/L (24-32); TOTAL PROTEIN 6.2 G/DL (6.4-8.2); eCRCL 58 ML/MIN; eGFR 66 ML/MIN
[2023-09-04 08:08] VITALS: BP_SYST 124; PULSE 72
[2023-09-04] MEDS: losartan 25mg tablet PO SCH (08:08)
== END 2023-09-04 11:00 | disposition home or self-care (01) ==
LOC: ER 05:56 → ED HOLD 12:28 → UNDOADMIN 12:28 → PCU 3S 14:27 → ED HOLD 14:27 → PCU 3S 14:37 → INTOOBSV 14:37 → ED HOLD 14:37 → UNDODISIN 09-04 11:00
PROVIDERS: ADMIT Internal Medicine; ATTEND Internal Medicine
DX: R53.83 Other fatigue (principal); R42 Dizziness and giddiness; R07.89 Other chest pain; R79.89 Other specified abnormal findings of blood chemistry; I10 Essential (primary) hypertension; I25.10 Atherosclerotic heart disease of native coronary artery without angina pectoris; G89.4 Chronic pain syndrome; E78.5 Hyperlipidemia, unspecified; M19.90 Unspecified osteoarthritis, unspecified site; K21.9 Gastro-esophageal reflux disease without esophagitis; I35.1 Nonrheumatic aortic (valve) insufficiency; Z63.4 Disappearance and death of family member; Z87.442 Personal history of urinary calculi; Z88.1 Allergy status to other antibiotic agents; Z88.0 Allergy status to penicillin; Z79.899 Other long term (current) drug therapy; Z88.2 Allergy status to sulfonamides; Z90.49 Acquired absence of other specified parts of digestive tract; Z98.1 Arthrodesis status
CPT/HCPCS: 74177; 80053; 81003; 83880; 84484; 93005; 96361; 96372; 96374; 97161; 99285; G0378; 36415; 71045; 85025; 87081; 97116; 97530; J1644; J2405; J7030; Q9967

== ENCOUNTER 2023-09-21 10:36 | Outpatient (CLI) | payer MEDICARE, OTHER ==
[~2023-09-21 10:36] MED LIST changes: +ASPI-920 PO; -DIAZ5TAB PO; -GABA-530 PO; -MECO10005; -PANT-47 PO
== END 2023-09-21 23:59 | disposition home or self-care (01) ==
LOC: VAS 10:36
PROVIDERS: ATTEND Internal Medicine Cardiovascular Disease
DX: R42 Dizziness and giddiness (principal); R40.4 Transient alteration of awareness
CPT/HCPCS: 93880

== ENCOUNTER 2023-11-10 15:04 | Outpatient (CLI) | payer MEDICARE, OTHER ==
[2023-11-10 15:50] LABS: BILIRUBIN,URINE NEGATIVE (Neg); CLARITY,URINE CLEAR (Clear); COLOR,URINE YELLOW (Yellow); GLUCOSE, URINE NEGATIVE (Neg); KETONES,URINE NEGATIVE (Neg); LEUKOCYTE ESTERASE ,URINE NEGATIVE (Neg); NITRITES, URINE NEGATIVE (Neg); OCCULT BLOOD,URINE NEGATIVE (Neg); PROTEIN,URINE NEGATIVE (Neg); UROBILINOGEN,URINE 0.2 E.U/dL (0.2-1.0)
[2023-11-10 15:52] LABS: BASOPHILS % (AUTO) 0.9 % (0-1); EOSINOPHILS # (AUTO) 0.1 X10'3 (0-0.9); HEMATOCRIT 30.4 % (42.0-52.0); HEMOGLOBIN 9.2 g/dl (14.0-17.9); LYMPHOCYTES # (AUTO) 1.2 X10'3 (1.1-4.8); LYMPHOCYTES % (AUTO) 27.6 % (21-51); MEAN CORPUSCULAR HEMOGLOBIN 27.1 PG (27.0-31.0); MEAN CORPUSCULAR HGB CONC 30.4 g/dL (33.0-36.5); MEAN CORPUSCULAR VOLUME 89.2 FL (78-98); MEAN PLATELET VOLUME 8.3 FL (7.4-10.4); MONOCYTES # (AUTO) 0.5 X10'3 (0-0.9); MONOCYTES % (AUTO) 11.1 % (2-12); NEUTROPHILS # (AUTO) 2.5 X10'3 (1.8-7.7); NEUTROPHILS % (AUTO) 57.4 % (42-75); PLATELET COUNT 171 X10'3 (140-440); RED CELL DISTRIBUTION WIDTH 19.2 % (11.5-14.5); WHITE BLOOD COUNT 4.4 X10'3 (4.5-11.0)
[2023-11-10 16:10] LABS: APTT 24 SECONDS (22-32); INR 1.1 INR; PROTHROMBIN TIME 11.7 SECONDS (9.0-12.0)
[2023-11-10 16:12] LABS: ALANINE AMINOTRANSFERASE 17 U/L (12-78); ALBUMIN 3.4 G/DL (3.4-5.0); ALBUMIN/GLOBULIN RATIO 1.1 (1.1-1.5); ALKALINE PHOSPHATASE 74 IU/L (46-116); ANION GAP 7 (8-16); ASPARTATE AMINO TRANSFERASE 31 U/L (10-37); BILIRUBIN,TOTAL 0.5 MG/DL (0.1-1.0); BLOOD UREA NITROGEN 10 MG/DL (7-18); BUN/CREATININE RATIO 9.7 (10.0-20.0); CALCIUM 8.5 MG/DL (8.5-10.1); CHLORIDE 109 MMOL/L (99-107); CREATININE 1.03 MG/DL (0.60-1.10); GLUCOSE 93 MG/DL (70-104); POTASSIUM 3.9 MMOL/L (3.5-5.1); SODIUM 142 MMOL/L (135-145); TOTAL CARBON DIOXIDE 25.7 MMOL/L (24-32); TOTAL PROTEIN 6.6 G/DL (6.4-8.2); eGFR 70 ML/MIN
[2023-11-10 16:16] LABS: UA COLLECTION TYPE CLN CATCH MIDSTREAM
== END 2023-11-10 23:59 | disposition home or self-care (01) ==
LOC: LAB 15:04
PROVIDERS: ATTEND Anesthesiology
DX: Z01.818 Encounter for other preprocedural examination (principal); G89.29 Other chronic pain; M43.28 Fusion of spine, sacral and sacrococcygeal region; M51.16 Intervertebral disc disorders with radiculopathy, lumbar region; M99.53 Intervertebral disc stenosis of neural canal of lumbar region; R53.81 Other malaise; M43.26 Fusion of spine, lumbar region; M47.22 Other spondylosis with radiculopathy, cervical region; M47.26 Other spondylosis with radiculopathy, lumbar region; T85.111A Breakdown (mechanical) of implanted electronic neurostimulator of peripheral nerve electrode (lead), initial encounter; Z79.891 Long term (current) use of opiate analgesic; Z96.82 Presence of neurostimulator; Y84.8 Other medical procedures as the cause of abnormal reaction of the patient, or of later complication, without mention of misadventure at the time of the procedure; Y92.89 Other specified places as the place of occurrence of the external cause
CPT/HCPCS: 71046; 80053; 81003; 85025; 85610; 85651; 85730

== ENCOUNTER 2023-12-20 08:16 | Outpatient (CLI) | payer MEDICARE, OTHER ==
[2023-12-20] VITALS (20 sets, daily range): BP systolic 110–142; BP diastolic 70–105; PULSE 75–106
== END 2023-12-20 23:59 | disposition home or self-care (01) ==
LOC: CARD DIAG 08:16
PROVIDERS: ATTEND Internal Medicine Cardiovascular Disease
DX: R42 Dizziness and giddiness (principal)
CPT/HCPCS: 93660

== ENCOUNTER 2024-11-08 05:25 | Emergency (ER) | payer MEDICARE, OTHER ==
[~2024-11-08] VITALS: Ht 188 cm; Wt 100.0 kg
[~2024-11-08 05:25] MED LIST changes: -ASCO100T12 PO; -ASPI-920 PO; -CHOL50002 PO; +NO HOME MEDS; -PSYL575P22 PO; -VALS40TA2 PO
--- NOTE | 2024-11-08 06:21 | ELECTROCARDIOGRAPH REPORT ---
[facility] Test Date: 2024-11-08 Test Time: 06:17:11 Pat Name: MADELINE BUSTOS Department: [facility] Patient ID: [facility]-[id number] Room: Gender: M Equipment Monitor Phototypesetting: : 1945 Requested By: EMIL ROSSI Order Number: [id number] Reading MD: Measurements Intervals [place] Rate: 68 P: -27 AR: 196 QRS: 49 QRSD: 90 T: 75 QT: 401 QTc: 427 Interpretive Statements Sinus rhythm Multiple premature complexes, vent & supraven Baseline wander in lead(s) V1 Please click the below link to view image of tracing.
[2024-11-08 06:22] LABS: MEAN PLATELET VOLUME 8.3 FL (7.4-10.4); RED CELL DISTRIBUTION WIDTH 14.6 % (11.5-14.5)
--- NOTE | 2024-11-08 06:22 | Physician Documentation ---
History of Present Illness Chief Complaint: Abdominal Pain Stated Complaint: ABD PAIN Time Seen by MD: 06:01 OK to notify your PCP?: Yes Primary Medical Doctor: DUC SHELBY Source: patient Mode of Arrival: POV Exam Limitations: no limitations HPI Mr. Reed is a 79 y/o male with PMHx significant for Colectomy (1990) due to ulcerative colitis, Cholecystectomy, and Renal stones who presents to the ED with c/o right sided abdominal pain and flank pain that he states radiates through to his back. he states that the pain started last night after dinner (~1900 hrs) and has been persistent. He also endorses nausea but denies vomiting. No BRBPR or melena. He denies dysuria or hematuria. He states that he has had several BM's this evening. No fever/chills. No recent febrile illness. No recent ABD trauma. Nothing appears to make the pain better or worse. He endorses feeling "lightheaded" but denies actual dizziness. No chest pain/pressure/discomfort. No SOB or difficulty breathing. Location: RUQ, flank Radiation: back Medication Reconciliation Allergies: Coded Allergies: Penicillins (Verified Allergy, Severe, JUWAN BAMBI SYNDROME, 07/11/24) Sulfa (Sulfonamide Antibiotics) (Verified Allergy, Severe, RASH, 05/18/23) amoxicillin (Verified Allergy, Severe, RASH,BLISTERS, 05/18/23) cefaclor (Verified Allergy, Severe, RASH, 05/18/23) clavulanic acid (Verified Allergy, Severe, RASH,BLISTERS, 05/18/23) codeine (Verified Allergy, Severe, RASH, ITCHING, 05/18/23) morphine (Verified Allergy, Intermediate, HIVES, BLISTERS, 08/03/21) vancomycin (Verified Allergy, Mild, 08/03/21) fever and anxiety midazolam (Verified Adverse Reaction, Unknown, hiccups, 09/03/23) Miscellaneous Medications Home Med List (No Home Medications), (Reported) Past Medical History Past Medical History: Hypertension, *GI/HEPATOBILIARY*, Kidney Stones, Arthritis, Chronic Back Pain Past Surgical History: colectomy, orthopedic surgeries, other Other Past Surgical History: spinal stimulator placed Patient History: FH: CABG (coronary artery bypass surgery) MOTHER FH: myocardial infarction MOTHER FH: prostate cancer FATHER Alcohol Use: Rarely Drug Use: none Lives with: Spouse Lives In: Home Occupation: retired Review of Systems All Other Systems at this time: Reviewed and Negative Gastrointestinal: Reports: abdominal pain, nausea Physical Exam Vital Signs: RN Vital Signs have been reviewed: Yes, Temperature: 97.2, Source: Temporal, Heart Rate: 77, Respiratory Rate: 16, BP: 150/84, Pulse Oximetry: 98, Weight: 100.000 Pulse Oximetry Reflects: adequate oxygenation General Appearance: alert, WD/WN, no apparent distress EENT: PERRL/EOMI Neck: normal inspection Respiratory: lungs clear Chest: no accessory muscle use Cardiovascular: normal peripheral pulses Gastrointestinal: normal palpation, bowels sounds present Gastrointestinal + scar to left side of ABD from prior colectomy. + TTP to right flank. No rash or skin lesions noted. No rebounding or guarding. No pulsatile or palpable masses appreciated. Back: normal inspection, no CVA tenderness Extremities: normal range of motion, non-tender, no edema Neurologic: oriented x4 Psychiatric: normal mood/affect Skin: normal color Lymphatic: no adenopathy Progress Results/Orders Reviewed/noted all lab results: Yes Results/Orders Orders - EMIL ROSSI MD LA (11/08/24 06:04) Electrocardiogram (11/08/24 06:10) Hs Troponin I W Calculations (11/08/24 06:10) Completed Orders - EMIL ROSSI MD Fentanyl/Pf (Fentanyl 0.05 Mg/Ml Syringe (11/08/24 06:15) Ondansetron Inj. (Zofran 4mg/2ml Vial) (11/08/24 06:15) Vital Signs 11/08/24 05:27 Temp 97.2 Pulse 77 Resp 16 B/P (MAP) 150/84 Pulse Ox 98 Laboratory Tests Test 11/08/24 06:02 CBC Comment Urine Comment Chemistry Comments EKG/XRAY/CT/US/VASC/MRI EKG : Intepreting Monitor?: Yes Indication: dizzy EKG Rate: 68 EKG: NSR EKG Blocks: none [place]: normal Hypertrophy: none Additional Comment I interpreted the EKG Rate: 68 Rhythm: NSR [place]: Normal Intervals: Normal ST-waves: Nonspecific Note: Occasional PVC's Interpretation: NSR with occasional PVC's CT : Interpreted By: self CT: abdomen/pelvis With Contrast?: Yes Impression CT ABD/Pelvis, as reviewed by me, shows bilateral renal cysts. No signs suggestive of an acute obstruction or signs of a bowel perforation. Medical Decision Making Differential Dx:Considerations: Include: AAA, Angina/GA, Aortic dissection, Appendicitis, Bowel obstruction, Constipation, Diverticular disease, Gastritis/PUD, Gastroenteritis, Hernia, Hepatitis, Inflammatory BD, Ischemic bowel, Pancreatitis, Urinary obstruction, Urinary tract infection, Urolithiasis Additional Comments Mr. Reed is a 79 y/o male with PMHx significant for HTN, Colectomy (1990) due to UC, Cholecystectomy, and Renal stones who presents with c/o right sided abdominal pain and flank pain. While here in the ED, he remained hemodynamically normal with ABC's intact and in NAD. He is afebrile and nontoxic. + TTP to right side of ABD but without rebounding or guarding. No pulsatile or palpable masses. Due to the c/o lightheadedness and nausea, an EKG was obtained and reviewed by me. The EKG showed SR with a rate of 68, occasional PVC's, with normal intervals and axis. No obvious signs suggestive of acute myocardial injury or ischemia. TnI was within normal limits. He has no significant leukocytosis or left shift. Neutrophil predominance. Lytes normal. Renal function normal. Lipase and LFT's also normal. CT ABD/Pelvis obtained to further evaluate due to history of HTN, wanted to evaluate for AAA/Aortic Dissection or other vascular emergencies. Also with history of colectomy, wanted to evaluate to bowel obstruction. I reviewed his scan and it shows simple cysts on both kidneys. Nothing to suggest an acute obstruction, perf oration, large malignancy, or AAA/Dissection. Clinically, he does not appear to have an acute surgical abdomen. With a normal lactic, I also have less concern for an acute ischemic bowel/mesentary ischemia. CT does show mild left hydro. When I discussed this with him, he informed me that last month, he had a stone on the left and Urology placed a stent and removed the stone. The stent stayed in for a week and was then removed. His UA today shows microscopic RBC's without signs of an obvious infection. We discussed admission for ongoing management but he declined and stated that he would follow-up with his PCP and return if he had worsening of symptoms. Tolerating PO intake well and is asking repeatedly to be discharged home as he feels significantly better. Given follow- up and return instructions. He voiced understanding and agreement with d/c instructions. Departure Disposition: 01 HOME / SELF CARE / HOMELESS Impression: Primary Impression: Kidney stone Condition: Improved Discharge Instructions: Kidney Stones, [id number] Referrals: NO PRIMARY CARE PROVIDER (PCP) Prescriptions ONDANSETRON ODT 4mg tablet (ONDANSETRON ODT) 4 Mg Tab.rapdis 1 TAB PO Q6H PRN PRN for nausea/vomiting for 4 Days, #20 TAB 0 Refills Prov: EMIL ROSSI MD 11/08/24 Education Educated: Patient Educated regarding: diagnosis Signature Scribe Signature: N/A Attestation: N/A EMIL ROSSI MD Nov 08, 2024 06:22
[2024-11-08] MEDS: ondansetron/PF 4mg/2ml inj IV ONE ×2 (06:29→08:43)
[2024-11-08] MEDS: fentaNYL/PF 50MCG/1 ML 2ML syringe IV ONE (06:29)
[2024-11-08 06:30] LABS: CREATININE 1.23 MG/DL (0.60-1.10); LEUKOCYTE ESTERASE ,URINE NEGATIVE (Neg); NITRITES, URINE NEGATIVE (Neg); OCCULT BLOOD,URINE MODERATE (Neg); TOTAL CARBON DIOXIDE 23.6 MMOL/L (24-32); eCRCL 58 ML/MIN; eGFR 57 ML/MIN
[2024-11-08 06:38] LABS: UA COLLECTION TYPE VOIDED
[2024-11-08 06:42] LABS: MUCUS STRANDS NONE SEEN /LPF (Neg); SQUAMOUS EPITHELIAL CELL,UR FEW /LPF (FEW)
[2024-11-08] MEDS ORDERED: iohexol 300mg/ml 100ml inj. ONE (06:46)
[2024-11-08 07:26] VITALS: TEMP 98
--- NOTE | 2024-11-08 07:58 | RADIOLOGY REPORT ---
CLINICAL INFORMATION: Abdominal pain. Right flank pain radiating into the back. TECHNIQUE: Axial CT images of the abdomen and pelvis were obtained after the uneventful administration of 100 mL Omnipaque 300 IV contrast. Coronal and sagittal reformatted images were obtained, reviewed, and stored. All CT scans at this medical facility are performed using dose modulation techniques as appropriate to a performed exam including the following: Automated exposure control was utilized; adjustment of the MA and/or KV according to patient size; and use of iterative reconstruction technique. CTDIvol = 26.61 mGy DLP = 1429.2 mGy-cm COMPARISON: CT CT ABDOMEN PELVIS on DOS: 09/03/23, CT CT ABDOMEN PELVIS on DOS: 12/27/22, CT ABDOMEN PELVIS on DOS: 08/03/21 FINDINGS: Lung bases: Dependent atelectasis. Liver: Hepatic steatosis. Biliary: Gallbladder is surgically absent. Spleen: Unremarkable. Pancreas: Unremarkable. No inflammatory changes, ductal dilatation, or mass identified. Adrenal glands: Unremarkable. No mass. Kidneys: Moderate left hydronephrosis and hydroureter with no obstructing calculus visualized. No right hydronephrosis. There are bilateral renal cysts, with the largest measuring up to 5.1 cm in greatest dimension at the superior pole of the right kidney. Aorta/Vascular: Moderate atherosclerotic calcification. No abdominal aortic aneurysm. Retroperitoneum: No mass or lymphadenopathy. Bowel/mesentery: No small bowel obstruction. No free air or free fluid. Postsurgical changes of prior subtotal colectomy with enterocolonic anastomosis at the sigmoid colon. Pelvic organs: Enlarged prostate with impression on the bladder base. Bladder: Moderate circumferential thickening of the bladder wall. There is a small calculus in the right posterior bladder measuring up to 0.25 cm, possibly a recently passed calculus, although no right hydronephrosis is seen. Abdominal wall: No mass or hernia. Bones: No acute fracture or focal intraosseous lesion. Similar-appearing postsurgical changes in the lumbar spine. Bilateral sacroiliac joint fusion also noted. IMPRESSION: 1. Moderate left hydronephrosis and hydroureter. No obstructing calculus visualized. Possibly due to obstruction secondary to wall thickening near the left ureterovesical junction. 2. Small calculus in the right posterior bladder, possibly a recently passed calculus, although no right hydronephrosis is seen. Correlate with clinical findings. 3. Moderate circumferential thickening of the bladder wall is nonspecific. May be due to a degree of bladder outlet obstruction from the enlarged prostate. Correlate clinically to exclude cystitis. Neoplasm, including malignancy would be less likely but not completely excluded in the appropriate clinical setting. 4. Additional findings as described above.
[2024-11-08] MEDS: ketorolac trometh 30MG/ML vial 30 MG/ML VIAL IV ONE (08:37)
[2024-11-08] MEDS ORDERED: ONDA-243 PO (09:22)
[2024-11-08 09:32] VITALS: BP 135/74; PULSE 61; RESP 16; O2SAT 98
== END 2024-11-08 09:33 | disposition home or self-care (01) ==
LOC: ER 05:26
DX: N20.0 Calculus of kidney (principal); I10 Essential (primary) hypertension; G89.29 Other chronic pain; M19.90 Unspecified osteoarthritis, unspecified site; Z87.442 Personal history of urinary calculi; Z88.0 Allergy status to penicillin; Z88.2 Allergy status to sulfonamides; Z88.5 Allergy status to narcotic agent; Z88.1 Allergy status to other antibiotic agents; Z90.49 Acquired absence of other specified parts of digestive tract; Z98.890 Other specified postprocedural states
CPT/HCPCS: 36415; 74177; 80053; 81001; 83605; 83690; 84484; 85025; 87088; 93005; 96374; 96375; 96376; 99285; J0780; J1885; J2405; J3010; Q9967